=== PATIENT | male | born 1965 | race Caucasian/White ===

== ENCOUNTER 2017-04-09 09:16 | Outpatient (CLI) | payer OTHER ==
--- NOTE | 2017-04-10 02:32 | MRI Report ---
EXAM: MRI BRAIN WITHOUT CONTRAST EXAM DATE: 04/09/2017 10:05 AM. CLINICAL HISTORY: VERTIGO. COMPARISON: None. TECHNIQUE: Multiplanar, multisequence T1-weighted and fluid-sensitive MR sequences of the brain were performed. Sequences optimized for routine head and IAC evaluation. Other: None. IV Contrast: None. FINDINGS: Brain Volume: Normal for age. Parenchyma/Dura: No acute parenchymal hemorrhage, mass, or midline shift. There is several foci of in creased T2 signal involving white matter, within normal limits for adults.No areas of restricted diff usion to suggest acute infarct. No definite abnormal areas of susceptibility artifact. Pituitary: Normal. Ventricles/Cisterns: No definite abnormal extra-axial fluid collection/mass seen. Ventricles and sulc i appear age appropriate. Cisterns are patent. Fluid is seen within Meckel's caves. 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 Sinuses: There is mild paranasal sinus mucosal thickening. No sinus fluid levels. Mastoid air cells a nd middle ear cavities appear clear. Orbits: Normal. Vasculature: Visualized major intracranial flow voids appear maintained. Bones: Normal. Other: T2 appearance of internal auditory canals, vestibule, cochlea normal. IMPRESSION: 1. Mild chronic appearing paranasal sinus disease. 2. Otherwise normal brain MRI. Referring Provider Line: [phone] SITE ID: [id number]
== END 2017-04-09 09:17 | disposition home or self-care (01) ==
LOC: DI 09:16
PROVIDERS: ATTEND Family Medicine
DX: J32.9 Chronic sinusitis, unspecified (principal); R42 Dizziness and giddiness
CPT/HCPCS: 70551

== ENCOUNTER 2018-07-21 08:32 | Outpatient (CLI) | payer OTHER ==
[2018-07-21 13:13] LABS: BASOPHILS # (AUTO) 0.1 10^3/uL (0.0-0.1); BASOPHILS % (AUTO) 1.2 %; EOSINOPHILS # (AUTO) 0.7 10^3/uL (0.0-0.7); EOSINOPHILS % (AUTO) 11.4 %; HGB - HEMOGLOBIN 15.2 g/dL (14.0-18.0); LYMPHOCYTES # (AUTO) 1.5 10^3/uL (1.5-3.5); LYMPHOCYTES % (AUTO) 23.9 %; MEAN CORPUSCULAR HGB CONC 34.1 g/dL (32.0-36.0); MEAN CORPUSCULAR VOLUME 93.7 fL (80.0-94.0); MEAN PLATELET VOLUME 7.7 fL (7.4-11.4); MONOCYTES # (AUTO) 0.5 10^3/uL (0.0-1.0); MONOCYTES % (AUTO) 8.9 %; NEUTROPHILS # (AUTO) 3.4 10^3/uL (1.5-6.6); NEUTROPHILS % (AUTO) 54.6 %; PLT - PLATELET COUNT 291 10^3/uL (130-450); RED BLOOD COUNT 4.77 10^6/uL (4.70-6.10); RED CELL DISTRIBUTION WIDTH 13.5 % (12.0-15.0); WHITE BLOOD COUNT 6.1 x10^3/uL (4.8-10.8)
[2018-07-21 13:41] LABS: ALBUMIN 4.9 g/dL (3.2-5.5); ALBUMIN/GLOBULIN RATIO 1.7 (1.0-2.2); ALKALINE PHOSPHATASE 56 IU/L (42-121); ALT ALANINE AMINOTRANSFERASE 25 IU/L (10-60); AST ASPARTATE AMINOTRANSFERASE 22 IU/L (10-42); BILIRUBIN,TOTAL 1.1 mg/dL (0.2-1.0); BUN - BLOOD UREA NITROGEN 19 mg/dL (6-20); CALCIUM 9.4 mg/dL (8.5-10.3); CARBON DIOXIDE - CO2 25 mmol/L (21-32); CHLORIDE 105 mmol/L (101-111); CHOL/HDL RATIO 4.8 (<5.0); CHOLESTEROL 150 mg/dL; CREATININE 0.9 mg/dL (0.6-1.2); GFR - MDRD 89 (>89); GLUCOSE 100 mg/dL (70-100); HDL CHOLESTEROL 31 mg/dL; LDL CHOLESTEROL,CALCULATED 97 mg/dL; LDL/HDL RATIO 3.1 (<3.6); SODIUM 137 mmol/L (135-145); TOTAL PROTEIN 7.8 g/dL (6.7-8.2); VLDL CHOLESTEROL 22 mg/dL
[2018-07-21 14:00] LABS: HB2 TOTAL 16.7 g/dL; HEMOGLOBIN A1C 0.59 g/dL; HEMOGLOBIN A1C % 5.4 % (4.6-6.2)
== END 2018-07-21 23:59 | disposition home or self-care (01) ==
LOC: LAB.WCP 08:32
PROVIDERS: ATTEND Family Medicine
DX: I10 Essential (primary) hypertension (principal); E78.5 Hyperlipidemia, unspecified; R73.9 Hyperglycemia, unspecified
CPT/HCPCS: 36415; 80053; 80061; 83036; 83721; 85025

== ENCOUNTER 2018-12-10 11:21 | Inpatient (IN) | payer OTHER ==
[2018-12-10] MEDS ORDERED: MORPHINE 2 MG/ML CARPUJECT IVP STA (11:38)
[2018-12-10] MEDS ORDERED: PROMETHAZINE INJ 25 MG in SODIUM CHLORIDE 0.9% 50 ML IV STA (11:38)
[2018-12-10] MEDS ORDERED: SODIUM CHLORIDE 0.9% 1,000 ML IV ONE (11:38)
--- NOTE | 2018-12-10 11:41 | ED Physician Documentation ---
PD HPI ABD PAIN - Stated complaint Stated Complaint: SIDE PX - Chief complaint Chief Complaint: Abd Pain - History obtained from History obtained from: Patient, Family - History of Present Illness Timing - onset: How many days ago (several) Timing - duration: Days (several) Timing - details: Gradual onset Pain level max: 9 Pain level now: 9 Quality: Aching, Pain Location: RUQ Radiation: No: Chest, , Lower back, Left flank, Left shoulder, Right flank, Right shoulder, Upper back Improved by: Laying still Worsened by: Moving, Palpation Associated symptoms: Nausea. No: Fever, Vomiting, Hematemesis, Diarrhea, Constipation, Melena, Hematochezia, Dysuria, Hematuria, Chest pain Similar symptoms before: Has not had sx before Recently seen: Not recently seen - Additional information Additional information: Right upper quadrant abdominal pain for the past few days, became constant 2 days ago. Worsening pain today. Had a sigmoid bowel resection several years ago. Still has his gallbladder. Has not ate or drank anything today Review of Systems Ten Systems: 10 systems reviewed and negative Constitutional: denies: Fever, Chills Respiratory: denies: Cough Skin: denies: Rash Musculoskeletal: denies: Neck pain, Back pain PD PAST MEDICAL HISTORY - Past Medical History Past Medical History: Yes Cardiovascular: Hypertension, High cholesterol Other Past Medical History: spinocerebral ataxia - Past Surgical History Past Surgical History: Yes General: Gastric surgery, Colonoscopy - Present Medications Home Medications: Ambulatory Orders Medication Instructions Recorded Confirmed Aspirin 81 mg PO DAILY 12/10/18 12/10/18 Atorvastatin [Lipitor] 10 mg PO DAILY 12/10/18 12/10/18 Lisinopril 10 mg PO DAILY 12/10/18 12/10/18 - Allergies Allergies/Adverse Reactions: Allergies Allergy/AdvReac Type Severity Reaction Status Date / Time hydromorphone [From Dilaudid] Allergy Nausea Verified 12/10/18 11:29 ondansetron [From Zofran] AdvReac Nausea Verified 12/10/18 11:29 - Social History Does the pt smoke?: No Smoking Status: Never smoker Does the pt drink ETOH?: Yes ETOH Use: Beer Does the pt have substance abuse?: No - Immunizations Immunizations are current?: No PD ED PE NORMAL - Vitals Vital signs reviewed: Yes - General General: Alert and oriented X 3, No acute distress, Well developed/nourished - HEENT HEENT: PERRL, Moist mucous membranes - Neck Neck: Supple, no meningeal sign - Cardiac Cardiac: RRR, Strong equal pulses - Respiratory Respiratory: No respiratory distress, Clear bilaterally - Abdomen Abdomen: Soft, Non distended, Other (Tender palpation right upper quadrant. Positive Teixeira sign) - Back Back: No spinal TTP, Other (R CVAT) - Derm Derm: Warm and dry - Extremities Extremities: No edema - Neuro Neuro: Alert and oriented X 3 - Psych Psych: Normal mood, Normal affect Results - Vitals Vitals: Vital Signs - 24 hr 12/10/18 12/10/18 12/10/18 11:26 11:32 13:29 Temperature 37.0 C Heart Rate 105 H 94 79 Respiratory 16 16 12 Rate Blood Pressure 153/100 H 139/87 H 112/74 O2 Saturation 97 96 94 12/10/18 15:00 Temperature Heart Rate 84 Respiratory 18 Rate Blood Pressure 117/77 O2 Saturation 95 Oxygen O2 Source Room air - Labs Labs: Laboratory Tests 12/10/18 12/10/18 12/10/18 11:33 11:33 13:05 WBC 13.1 H RBC 4.66 L Hgb 14.2 Hct 41.8 L MCV 89.7 MCH 30.5 MCHC 34.0 RDW 14.6 Plt Count 341 MPV 7.2 L Neut # (Auto) 10.3 H Lymph # (Auto) 1.4 L White # (Auto) 1.2 H Eos # (Auto) 0.2 Baso # (Auto) 0.0 Absolute Nucleated RBC 0.00 Nucleated RBC % 0.0 Sodium 138 Potassium 4.0 Chloride 102 Carbon Dioxide 23 Anion Gap 13.0 BUN 15 Creatinine 0.9 Estimated GFR (MDRD) 89 Glucose 98 Calcium 8.8 Total Bilirubin 0.9 AST 15 ALT 16 Alkaline Phosphatase 68 Total Protein 7.5 Albumin 4.0 Globulin 3.5 Albumin/Globulin Ratio 1.1 Lipase 23 Urine Color YELLOW Urine Clarity CLEAR Urine pH 6.0 Ur Specific [place] <=1.005 Urine Protein NEGATIVE Urine Glucose (UA) NEGATIVE Urine Ketones NEGATIVE Urine Occult Blood NEGATIVE Urine Nitrite NEGATIVE Urine Bilirubin MODERATE H Urine Urobilinogen 0.2 (NORMAL) Ur Leukocyte Esterase NEGATIVE Ur Microscopic Review NOT INDICATED Urine Culture Comments NOT INDICATED - Rads (name of study) RUQ US Radiology: Prelim report reviewed, EMP read contemporaneously, See rad report (Suboptimal stress study due to gaseous abdomen. Normal-appearing gallbladder. No other significant abnormality. ) CT abd/pelvis Radiology: Prelim report reviewed, EMP read contemporaneously, See rad report ( Enhancing anterior right upper quadrant collection most likely representing an abscess measuring 3.5 x 2.3 x 3 cm with adjacent inflammatory changes and present along the margins of the mid proximal transverse colon with some associated edema and thickening of the transverse colon. Findings may be the result of diverticulitis with associated abscess although with the linear high density structure within the collection measuring 2.2 cm findings may represent a foreign body having perforated likely originating from the transverse colon with surrounding abscess formation. 2. Colonic diverticulosis. No bowel obstruction. Status post sigmoid resection and anastomosis. 3. Normal appendix. 4. 4.5 mm right lung middle lobe nodule with this portion of the right middle lobe not included on the multiple prior studies. See recommendations below. 5. Normal CT appearance of the gallbladder. ) PD MEDICAL DECISION MAKING - ED course Complexity details: reviewed results, re-evaluated patient, considered differential, d/w patient, d/w family, d/w performance management consultant ED course: 53-year-old male with what appears to be a perforation of his colon from a likely fishbone with abscess formation. Discussed the case with Dr. Jennings, general surgery on-call who feels that interventional radiology should be consulted. I contacted [facility] in [place], spoke with Dr. Jazlyn Eaton, surgery who feels that the patient can likely be placed on antibiotics and either kept here or potentially discharged home. I recontacted Dr. Jennings and he will come evaluate the patient. He came to the emergency department evaluated the patient, discussed with radiology, Dr. Jefferson and they will evaluate the patient tomorrow for possible procedure. Will be maintained on IV antibiotics until that time. Patient placed in observation. Pain well con trolled. This document was made in part using voice recognition software. While efforts are made to proofread this document, sound alike and grammatical errors may occur. Departure - Departure Disposition: ED Place in Observation Clinical Impression: Perforation of colon, Intra-abdominal abscess, Lung nodule < 6cm on CT Condition: Stable
[2018-12-10 11:57] LABS: BASOPHILS % (AUTO) 0.4 %; EOSINOPHILS # (AUTO) 0.2 10^3/uL (0.0-0.7); EOSINOPHILS % (AUTO) 1.4 %; HGB - HEMOGLOBIN 14.2 g/dL (14.0-18.0); LYMPHOCYTES # (AUTO) 1.4 10^3/uL (1.5-3.5); LYMPHOCYTES % (AUTO) 10.9 %; MEAN CORPUSCULAR HEMOGLOBIN 30.5 pg (27.0-31.0); MEAN CORPUSCULAR VOLUME 89.7 fL (80.0-94.0); MEAN PLATELET VOLUME 7.2 fL (7.4-11.4); MONOCYTES # (AUTO) 1.2 10^3/uL (0.0-1.0); MONOCYTES % (AUTO) 9.1 %; NEUTROPHILS # (AUTO) 10.3 10^3/uL (1.5-6.6); NEUTROPHILS % (AUTO) 78.2 %; PLT - PLATELET COUNT 341 10^3/uL (130-450); RED BLOOD COUNT 4.66 10^6/uL (4.70-6.10); RED CELL DISTRIBUTION WIDTH 14.6 % (12.0-15.0); WHITE BLOOD COUNT 13.1 x10^3/uL (4.8-10.8)
[2018-12-10 12:26] LABS: ALBUMIN/GLOBULIN RATIO 1.1 (1.0-2.2); BILIRUBIN,TOTAL 0.9 mg/dL (0.2-1.0); CALCIUM 8.8 mg/dL (8.5-10.3); CREATININE 0.9 mg/dL (0.6-1.2); TOTAL PROTEIN 7.5 g/dL (6.7-8.2)
[2018-12-10] MEDS ORDERED: MORPHINE 10 MG/ML VIAL IVP STA ×2 (13:19→17:32)
--- NOTE | 2018-12-10 13:38 | Ultrasound Report ---
Reason: RUQ pain Procedure Date: 12/10/2018 Accession Number: [id number] / [id number] Procedure: US - Abdomen Limited CPT Code: FULL RESULT: EXAM: ABDOMEN ULTRASOUND LIMITED, RUQ EXAM DATE: 12/10/2018 01:17 PM. CLINICAL HISTORY: RUQ pain. COMPARISON: None. TECHNIQUE: Real-time scanning was performed with static images obtained. FINDINGS: Liver: Normal in size and echotexture. 16.6 cm. Main portal vein flow: Hepatopetal. Gallbladder: Normal. No stones, wall thickening, or sonographic Teixeira's sign. (Diffusely painful abdomen) Biliary System: CBD measures 3 mm. No intrahepatic or extrahepatic ductal dilatation. Other: Pancreas not visualized due to overlying bowel gas. IMPRESSION: Suboptimal stress study due to gaseous abdomen. Normal-appearing gallbladder. No other significant abnormality. RADIA
[2018-12-10] MEDS ORDERED: IOVERSOL 320 100 ML VIAL IVP ONE ×3 (13:54→19:00)
[2018-12-10 13:57] LABS: GLUCOSE, URINE (UA) NEGATIVE (NEGATIVE); KETONES,URINE (UA) NEGATIVE (NEGATIVE); LEUKOCYTE ESTERASE, URINE NEGATIVE (NEGATIVE); NITRITE,URINE NEGATIVE (NEGATIVE); OCCULT BLOOD,URINE NEGATIVE (NEGATIVE); PROTEIN,URINE NEGATIVE (NEGATIVE); UROBILINOGEN,URINE 0.2 (NORMAL) E.U./dL (NORMAL)
[2018-12-10 13:59] LABS: CLARITY,URINE CLEAR (CLEAR)
[2018-12-10 14:03] LABS: BILIRUBIN,URINE MODERATE (NEGATIVE); ICTOTEST,URINE POSITIVE
--- NOTE | 2018-12-10 15:05 | CT Report ---
Reason: RUQ abd pain Procedure Date: 12/10/2018 Accession Number: [id number] / [id number] Procedure: CT - Abdomen/Pelvis W CPT Code: FULL RESULT: EXAM: CT ABDOMEN AND PELVIS WITH CONTRAST. EXAM DATE: 12/10/2018 02:14 PM. CLINICAL HISTORY: Right upper quadrant abdominal pain. COMPARISONS: ABD/PEL 08/11/2009 8:25 AM, ABD/PEL 06/26/2009 9:49 AM, ABD/PEL 05/31/2009 11:59 AM. TECHNIQUE: Routine helical CT imaging was performed through the abdomen and pelvis. IV contrast: 90 cc of Optiray 320. Enteric contrast: No. Reconstructions: Coronal and sagittal. In accordance with CT protocol optimization, one or more of the following dose reduction techniques were utilized for this exam: automated exposure control, adjustment of mA and/or KV based on patient size, or use of iterative reconstructive technique. FINDINGS: Lung Bases: Bibasilar scar/atelectasis. Nodule in the right middle lobe is noted measuring 4.5 mm. Included portions of the heart are unremarkable. Small hiatal hernia. Liver: Fatty liver. 4 mm low attenuation lesion in the left lobe of the liver not clearly evident on the prior studies. Patent portal vein. Gallbladder/Bile Ducts: Unremarkable. Spleen: Normal. Pancreas: Normal. Adrenal Glands: Normal. Kidneys: Left renal pelvic calyceal dilatation in the lower pole new in the interval. No obstructing calculi. No renal masses. Peritoneal Cavity/Bowel: Stomach is nondistended. No small bowel obstruction or small bowel wall thickening. Diverticuli are seen in the colon. Post surgical changes are seen in the sigmoid colon with partial resection and anastomosis. There are inflammatory changes and thickening involving the anterior mid proximal transverse colon along the margins of a diverticula with adjacent edema. There is adjacent marked edema as well as a low-attenuation 3 x 2.3 x 3.5 cm collection along the anterior cephalad aspect of the mid proximal transverse colon through which there traverses a linear high density structure seen best on coronal image 10 and axial images 29-32 and sagittal images 46-50. This measures approximately 2.2 cm in length. The fluid collection is present along the posterior aspect of the anterior superior right abdominal wall where there is adjacent thickening of the fascia and soft tissues anteriorly. The appendix is well visualized and normal. Pelvic Organs: Urinary bladder is unremarkable. Postsurgical changes involving the sigmoid colon. Small volume pelvic free fluid. Prostate gland is mildly enlarged. Fatty left inguinal hernia and small fatty right inguinal hernia. Vasculature: No aneurysms or other significant abnormality. Bones: Degenerative changes of lower thoracic and lumbar spine. No acute osseous abnormalities. Lumbar facet arthropathy. Other: None. IMPRESSION: 1. Enhancing anterior right upper quadrant collection most likely representing an abscess measuring 3.5 x 2.3 x 3 cm with adjacent inflammatory changes and present along the margins of the mid proximal transverse colon with some associated edema and thickening of the transverse colon. Findings may be the result of diverticulitis with associated abscess although with the linear high density structure within the collection measuring 2.2 cm findings may represent a foreign body having perforated likely originating from the transverse colon with surrounding abscess formation. 2. Colonic diverticulosis. No bowel obstruction. Status post sigmoid resection and anastomosis. 3. Normal appendix. 4. 4.5 mm right middle lobe nodule with this portion of the right middle lobe not included on the multiple prior studies. See recommendations below. 5. Normal CT appearance of the gallbladder. Recommend follow-up of the described nodule(s) according to the following guidelines: Fleischner Society Recommendations 2017 MacMahon et al. Radiology 2017 Solid Nodules-Low Risk Patients: <6 mm (single or multiple) - No routine follow-up* 6-8 mm (single) -CT at 6-12 months, then consider CT at 18-24 months 6-8mm (multiple) -CT at 3-6 months, then consider at CT 18-24 months >8 mm (single) -Consider CT, PET/CT, or tissue sampling at 3 months >8 mm (multiple) -CT at 3-6 months, then consider CT at 18-24 months Solid Nodules-High Risk Patients: <6 mm (single or multiple) -Optional CT at 12 months* 6-8 mm (single) -CT at 6-12 months, then CT at 18-24 months 6-8mm (multiple) -CT at 3-6 months, then CT at 18-24 months >8 mm (single) -Consider CT, PET/CT, or tissue sampling at 3 months >8 mm (multiple) -CT at 3-6 months, then at 18-24 months *Nodules < 6mm do not require routine follow-up, but suspicious nodule morphology, upper lobe location, or both may warrant 12 month follow-up Subsolid nodules: <6 mm (single, GG or part solid) -No routine follow-up >=6 mm (single GG) -CT at 6-12 months to confirm, then CT q2 years until 5 years >=6 mm (single part solid) -CT at 3-6 months to confirm, if unchanged and solid <6mm, annual CT for 5 years <6 mm (multiple GG or part solid) -CT at 3-6 months. If stable, consider CT at 2 and 4 years >=6 mm (multiple GG or part solid) -CT at 3-6 months. Subsequent management based on most suspicious nodule(s). Consider follow-up at 2 and 4 years for certain suspicious nodules <6mm. If solid component develops or growth, consider resection. CRISTOFER The call report notification system was initiated by Dr. Tex Oconnor at 02:54 PM on 12/10/2018. The above call report findings were discussed with Vance Pro by Dr. Tex Oconnor at 03:00 PM on 12/10/2018.
[2018-12-10] MEDS ORDERED: PIPERACILLIN/TAZOBACTAM 4.5 GM in SODIUM CHLORIDE 0.9% MINIBAG 100 ML IV STA (15:12)
[2018-12-10] MEDS ORDERED: PROCHLORPERAZINE 10 MG/2 ML VIAL IVP PRN (17:00)
--- NOTE | 2018-12-10 17:13 | CONSULTATION NOTE ---
Referring Provider Name of Referring Provider:: Dr. Tom Pro Consult Date: 12/10/18 Chief Complaint - Chief Complaint Chief Complaint: Abdominal pain (RUQ) History of Present Illness - Admitted From Admitted From:: Observation status awaiting resources - History Obtained From Records Reviewed: Yes History obtained from: Patient and Dr. Pro Exam Limitations: None - History of Present Illness HPI Comment/Other: Patient is a 53 year old History - Past Medical History Cardiovascular: reports: Hypertension, High cholesterol MRSA Hx?: No Other Past Medical History: spinocerebral ataxia - Past Surgical History General: reports: Gastric surgery, Colonoscopy Meds/Allgy - Home Medications Home Medications: Ambulatory Orders Medication Instructions Recorded Confirmed Atorvastatin [Lipitor] 10 mg PO DAILY 12/10/18 12/10/18 RX: Aspirin 81 mg PO DAILY 12/10/18 12/10/18 RX: Lisinopril 10 mg PO DAILY 12/10/18 12/10/18 - Allergies Allergies/Adverse Reactions: Allergies Allergy/AdvReac Type Severity Reaction Status Date / Time hydromorphone [From Dilaudid] Allergy Nausea Verified 12/10/18 11:29 ondansetron [From Zofran] AdvReac Nausea Verified 12/10/18 11:29 Review of Systems - Constitutional Constitutional: denies: Fatigue, Fever, Chills - Eyes Eyes: denies: Pain - Ears, Nose & Throat Ears, Nose & Throat: denies: Ear pain - Cardiovascular Cariovascular: denies: Irregular heart rate, Palpitations, Chest pain - Respiratory Respiratory: denies: Cough - Gastrointestinal Gastrointestinal: reports: Abdominal pain, Nausea. denies: Constipation, Diarrhea, Black stools, Bloody stools - Musculoskeletal Musculoskeletal: denies: Muscle pain, Back pain, Muscle aches - Neurological Neurological: denies: General weakness, Focal weakness - Psychiatric Psychiatric: denies: Depression, Anxiety Exam - Vital Signs Reviewed Vital Signs: Yes Vital Signs: Vital Signs x48h Temp Pulse Resp BP Pulse Ox 12/10/18 13:29 79 12 112/74 94 12/10/18 11:32 94 16 139/87 H 96 12/10/18 11:26 37.0 C 105 H 16 153/100 H 97 - Physical Exam General Appearance: positive: No acute distress Eyes Bilateral: positive: No lid inflammation, Conjunctivae nml, No scleral icterus ENT: positive: Dry mucous membranes Neck: positive: Trachea midline Respiratory: positive: Chest non-tender, No respiratory distress, Breath sounds nml Cardiovascular: positive: Regular rate & rhythm Abdomen: positive: Nml bowel sounds, No distention, Tenderness (Marked with a "X" on the patient's abdominal wall.) Skin: positive: Color nml (Slightly flushed.) Extremities: positive: Non-tender, Nml appearance Neurologic/Psychiatric: positive: Oriented x3, Motor nml, Sensation nml, Mood/affect nml Conclusion/Plan - Diagnosis Diagnosis: Abdominal abscess with foreign body right upper quadrant abdominal wall. - Plan Plan: Awaiting resources (ultrasound and radiologist) to guide drainage procedure. Incision and drainage of intra-abdominal abscess and removal foreign body with ultrasound guidance, possible colon resection with colostomy. The indication, procedure, and possible complications including but not limited to infection (already present), bleeding and even were already discussed with the patient and his and questions answered. The surgical case has been added to the schedule for tomorrow when it is convenient for all the requisite personnel. I have started Zosyn to cover enterics and have ordered labs in the AM. Clear liquid diet and NPO after midnight. I have asked them to let me know if there is any way we can make his stay at [facility] more comfortable to please let us know. Zen disclaimer: This document was created in part using voice recognition technology. Because of the inherent limitations of the system ([employer] user manual states that the licensee understands that speech recognition is a statistical process and that recognition errors are inherent in the process), occasional same sounding word substitutions and grammatical errors do occur and persist despite proofreading. Please read this document for context. - Lab Results Lab results reviewed: Yes Fish Bones: 12/10/18 11:33 12/10/18 11:33 - Diagnostic Imaging Results Diagnostic Imaging Results: positive: Final report reviewed, Read independently
[2018-12-10] MEDS: SODIUM CHLORIDE FLUSH 0.9% 10 ML SYRINGE IVP SCH (18:18)
[2018-12-10] MEDS: NS W/20 MEQ KCL 1,000 ML IV SCH (18:18)
[2018-12-10] MEDS: PIPERACILLIN/TAZOBACTAM 3.375 GM in SODIUM CHLORIDE 0.9% MINIBAG 100 ML IV SCH (18:18)
[2018-12-10] MEDS: MORPHINE 2 MG/ML SYRINGE IVP PRN ×2 (20:11→21:54)
[2018-12-11] MEDS: MORPHINE 2 MG/ML SYRINGE IVP PRN ×6 (00:06→22:09)
[2018-12-11] MEDS: SODIUM CHLORIDE FLUSH 0.9% 10 ML SYRINGE IVP SCH ×2 (00:07→18:17)
[2018-12-11] MEDS: PIPERACILLIN/TAZOBACTAM 3.375 GM in SODIUM CHLORIDE 0.9% MINIBAG 100 ML IV SCH ×5 (00:08→18:15)
[2018-12-11] MEDS: SODIUM CHLORIDE FLUSH 0.9% 10 ML SYRINGE IVP PRN ×5 (00:27→18:27)
[2018-12-11] MEDS: NS W/20 MEQ KCL 1,000 ML IV SCH (04:12)
[2018-12-11 05:53] LABS: BASOPHILS % (AUTO) 0.3 %; EOSINOPHILS # (AUTO) 0.2 10^3/uL (0.0-0.7); EOSINOPHILS % (AUTO) 1.7 %; HGB - HEMOGLOBIN 12.5 g/dL (14.0-18.0); LYMPHOCYTES # (AUTO) 1.5 10^3/uL (1.5-3.5); LYMPHOCYTES % (AUTO) 12.4 %; MEAN CORPUSCULAR HEMOGLOBIN 30.6 pg (27.0-31.0); MEAN CORPUSCULAR VOLUME 92.6 fL (80.0-94.0); MEAN PLATELET VOLUME 6.6 fL (7.4-11.4); MONOCYTES # (AUTO) 1.3 10^3/uL (0.0-1.0); NEUTROPHILS # (AUTO) 9.1 10^3/uL (1.5-6.6); NEUTROPHILS % (AUTO) 74.6 %; PLT - PLATELET COUNT 305 10^3/uL (130-450); RED BLOOD COUNT 4.09 10^6/uL (4.70-6.10); RED CELL DISTRIBUTION WIDTH 14.3 % (12.0-15.0); WHITE BLOOD COUNT 12.2 x10^3/uL (4.8-10.8)
[2018-12-11 06:01] LABS: ALBUMIN 3.4 g/dL (3.2-5.5); CALCIUM 8.3 mg/dL (8.5-10.3); CREATININE 0.9 mg/dL (0.6-1.2); TOTAL PROTEIN 6.9 g/dL (6.7-8.2)
[2018-12-11] MEDS: PANTOPRAZOLE 40 MG TABLET PO SCH (06:13)
--- NOTE | 2018-12-11 08:09 | ANESTHESIA ---
Pre-Anesthesia VS, & Labs - Diagnosis Diagnosis Abdominal abscess with foreign body right upper quadrant abdominal wall. - Procedure I and D abscess, FB removal of colon Vital Signs: Temp Pulse Resp BP Pulse Ox 37.3 C 86 16 107/60 94 12/11/18 05:45 12/11/18 05:45 12/11/18 05:45 12/11/18 05:45 12/11/18 05:45 Height 5 ft 6 in Weight (kg) 77.5 kg Body Mass Index 27.6 - NPO Other (Water at 0700) - Lab Results Current Lab Results: Laboratory Tests 12/11/18 05:40: Sodium 138, Potassium 4.0, Chloride 104, Carbon Dioxide 24, Anion Gap 10.0, BUN 10, Creatinine 0.9, Estimated GFR (MDRD) 89, Glucose 109 H, Calcium 8.3 L, Total Bilirubin 1.0, AST 12, ALT 12, Alkaline Phosphatase 66, Total Protein 6.9, Albumin 3.4, Globulin 3.5, Albumin/Globulin Ratio 1.0 12/11/18 05:40: WBC 12.2 H, RBC 4.09 L, Hgb 12.5 L, Hct 37.9 L, MCV 92.6, MCH 30.6, MCHC 33.0, RDW 14.3, Plt Count 305, MPV 6.6 L, Neut # (Auto) 9.1 H, Lymph # (Auto) 1.5, [place] # (Auto) 1.3 H, Eos # (Auto) 0.2, Baso # (Auto) 0.0, Absolute Nucleated RBC 0.00, Nucleated RBC % 0.0 12/10/18 11:33: Sodium 138, Potassium 4.0, Chloride 102, Carbon Dioxide 23, Anion Gap 13.0, BUN 15, Creatinine 0.9, Estimated GFR (MDRD) 89, Glucose 98, Calcium 8.8, Total Bilirubin 0.9, AST 15, ALT 16, Alkaline Phosphatase 68, Total Protein 7.5, Albumin 4.0, Globulin 3.5, Albumin/Globulin Ratio 1.1, Lipase 23 12/10/18 11:33: WBC 13.1 H, RBC 4.66 L, Hgb 14.2, Hct 41.8 L, MCV 89.7, MCH 30.5, MCHC 34.0, RDW 14.6, Plt Count 341, MPV 7.2 L, Neut # (Auto) 10.3 H, Lymph # (Auto) 1.4 L, [place] # (Auto) 1.2 H, Eos # (Auto) 0.2, Baso # (Auto) 0.0, Absolute Nucleated RBC 0.00, Nucleated RBC % 0.0 Fish Bones: 12/11/18 05:40 12/11/18 05:40 Home Medications and Allergies Home Medications: Ambulatory Orders Aspirin 81 mg PO DAILY 12/10/18 Atorvastatin [Lipitor] 10 mg PO DAILY 12/10/18 Lisinopril 10 mg PO DAILY 12/10/18 Active Medications Potassium Chloride/Sodium Chloride (Normal Saline 0.9% W/20 Meq Kcl) 1,000 mls @ 100 mls/hr IV .Q10H [facility] Last Infusion: 12/11/18 06:50 Dose: 100 mls/hr Piperacillin Sod/Tazobactam (Sod 3.375 gm/ Sodium Chloride) 100 mls @ 200 mls/hr IV Q6H [facility] Stop: 12/16/18 12:00 Last Infusion: 12/11/18 06:48 Dose: Infused Morphine Sulfate (Morphine (Carpuject)) 2 mg IVP Q2H PRN PRN Reason: Abdominal Pain Pantoprazole Sodium (Protonix) 40 mg PO QDAC [facility] Last Admin: 12/11/18 06:13 Dose: 40 mg Prochlorperazine Edisylate (Compazine Inj) 10 mg IVP Q6HR PRN PRN Reason: Nausea / Vomiting Last Admin: 12/11/18 00:27 Dose: 10 mg Sodium Chloride (Normal Saline Flush 0.9%) 10 ml IVP PRN PRN PRN Reason: NEEDED PER PROVIDER ORDERS Last Admin: 12/11/18 06:13 Dose: 10 ml Sodium Chloride (Normal Saline Flush 0.9%) 10 ml IVP 0100,0900,1700 [facility] Last Admin: 12/11/18 00:07 Dose: 10 ml Aspirin 81 mg PO DAILY 12/10/18 Atorvastatin [Lipitor] 10 mg PO DAILY 12/10/18 Lisinopril 10 mg PO DAILY 12/10/18 Allergies/Adverse Reactions: Allergies Allergy/AdvReac Type Severity Reaction Status Date / Time hydromorphone [From Dilaudid] Allergy Nausea Verified 12/10/18 11:29 ondansetron [From Zofran] AdvReac Nausea Verified 12/10/18 11:29 Anes History & Medical History - Anesthetic History Anesthesia Complications: reports: No previous complications Family history of Anesthesia Complications: Denies Family history of Malignant Hyperthermia: Denies - Medical History Cardiovascular: reports: Hypertension, High cholesterol Pulmonary: reports: None Gastrointestinal: reports: None Urinary: reports: None Neuro: reports: None Musculoskeletal: reports: None Endocrine/Autoimmune: reports: None Blood Disorders: reports: None Skin: reports: None Smoking Status: Never smoker Other Past Medical History: spinocerebral ataxia - Surgical History General: Gastric surgery, Colonoscopy Orthopedic: Other Exam General: Alert Dental: Other (Veneer top front) Mouth Opening: Greater than 4 Fingerbreadths Neck Mobility: Normal Mallampati classification: I Thyromental Distance: greater than 6 cm Respiratory: Lungs clear Cardiovascular: Regular rate Plan Anesthesia Type: General Consent for Procedure(s) Verified and Reviewed: Yes Code Status: Attempt Resuscitation ASA classification: 2-Mild systemic disease Is this case an emergency?: No
[2018-12-11] MEDS: MORPHINE 2 MG/ML CARPUJECT IVP PRN ×3 (08:11→18:04)
[2018-12-11] MEDS ORDERED: BUPIVACAINE 0.5% PF 10 ML VIAL ONE (09:10)
--- NOTE | 2018-12-11 09:15 | Ultrasound Report ---
Reason: Abscess with foreign body Procedure Date: 12/11/2018 Accession Number: [id number] / [id number] Procedure: US - Abdomen Limited CPT Code: FULL RESULT: EXAM: ABDOMEN ULTRASOUND LIMITED, RUQ EXAM DATE: 12/11/2018 08:44 AM. CLINICAL HISTORY: Abscess with foreign body. COMPARISON: None. TECHNIQUE: Real-time scanning was performed with static images obtained. FINDINGS: Characterization of location and characteristics of a known contained perforation of the colon in the right upper quadrant with abscess and suspected foreign body is performed to aid in surgical approach and planning. The abscess is located 3 cm deep to the skin immediately adjacent to the internal abdominal wall musculature fascia with a thin linear echogenic foreign body correlating to the CT finding. Overall dimensions of the collection on ultrasound are approximately 1.5 x 2.3 cm. IMPRESSION: Right upper quadrant abdominal collection with foreign body as described. Please note that findings and skin were marked in detail for the surgeon and reviewed with the surgeon. CRISTOFER
[2018-12-11] MEDS ORDERED: MIDAZOLAM 2 MG/2 ML VIAL IVP ONE (09:55)
[2018-12-11] MEDS ORDERED: fentaNYL 100 MCG/2 ML VIAL IVP ONE (09:55)
[2018-12-11] MEDS ORDERED: LIDOCAINE-MPF 2% 5 ML VIAL IM ONE (09:55)
[2018-12-11] MEDS ORDERED: ACETAMINOPHEN 1,000 MG/100 ML 100 ML IV ONE (09:55)
[2018-12-11] MEDS ORDERED: ROCURONIUM 50 MG/5 ML VIAL IVP ONE (09:55)
[2018-12-11] MEDS ORDERED: PROPOFOL 200 MG/20 ML VIAL IVP ONE (09:55)
[2018-12-11] MEDS ORDERED: DEXAMETHASONE 4 MG/ML VIAL IVP ONE (09:55)
[2018-12-11] MEDS ORDERED: BUPIVACAINE 0.5% PF 10 ML VIAL SUBQ ONE (09:59)
[2018-12-11] MEDS ORDERED: LACTATED RINGERS 1,000 ML IV ONE ×2 (10:05→11:13)
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
[2018-12-11] MEDS: ACETAMINOPHEN 1,000 MG/100 ML 100 ML IV SCH ×3 (13:32→22:04)
[2018-12-11] MEDS: LACTATED RINGERS 1,000 ML IV SCH ×2 (13:34→19:17)
[2018-12-12] MEDS: PIPERACILLIN/TAZOBACTAM 3.375 GM in SODIUM CHLORIDE 0.9% MINIBAG 100 ML IV SCH ×5 (00:04→23:59)
[2018-12-12] MEDS: SODIUM CHLORIDE FLUSH 0.9% 10 ML SYRINGE IVP SCH ×3 (00:05→18:17)
[2018-12-12] MEDS: MORPHINE 2 MG/ML SYRINGE IVP PRN ×7 (00:05→22:17)
[2018-12-12 05:06] LABS: BASOPHILS % (AUTO) 0.3 %; EOSINOPHILS % (AUTO) 0.1 %; HGB - HEMOGLOBIN 11.9 g/dL (14.0-18.0); LYMPHOCYTES % (AUTO) 8.1 %; MEAN CORPUSCULAR HEMOGLOBIN 31.2 pg (27.0-31.0); MEAN CORPUSCULAR HGB CONC 34.1 g/dL (32.0-36.0); MEAN CORPUSCULAR VOLUME 91.6 fL (80.0-94.0); MEAN PLATELET VOLUME 6.8 fL (7.4-11.4); MONOCYTES # (AUTO) 1.2 10^3/uL (0.0-1.0); NEUTROPHILS # (AUTO) 9.9 10^3/uL (1.5-6.6); NEUTROPHILS % (AUTO) 81.5 %; PLT - PLATELET COUNT 286 10^3/uL (130-450); RED BLOOD COUNT 3.81 10^6/uL (4.70-6.10); RED CELL DISTRIBUTION WIDTH 14.3 % (12.0-15.0); WHITE BLOOD COUNT 12.2 x10^3/uL (4.8-10.8)
[2018-12-12 05:18] LABS: ALBUMIN/GLOBULIN RATIO 0.9 (1.0-2.2); BILIRUBIN,TOTAL 0.7 mg/dL (0.2-1.0); CALCIUM 8.1 mg/dL (8.5-10.3); CREATININE 0.9 mg/dL (0.6-1.2); TOTAL PROTEIN 6.5 g/dL (6.7-8.2)
[2018-12-12] MEDS: PANTOPRAZOLE 40 MG TABLET PO SCH (05:57)
[2018-12-12] MEDS ORDERED: ACETAMINOPHEN 1,000 MG/100 ML 100 ML IV SCH (06:00)
[2018-12-12] MEDS: ENOXAPARIN 40 MG/0.4 ML SYRINGE SUBQ SCH (07:57)
--- NOTE | 2018-12-12 10:14 | PROVIDER PROGRESS NOTE ---
Subjective - General Admit Date: 12/11/18 Procedure Date: 12/11/18 Post Op Days: 3 Procedure Performed: Exploratory laparotomy with resection abscess cavity and removal foreign reagan - Review of Systems Wound/Incisions: positive: Dressing dry and intact General: positive: No symptoms (Tolerated all of breakfast - wants regular diet.) HEENT: positive: No symptoms Pulmonary: positive: No symptoms Cardiovascular: positive: No symptoms Gastrointestinal: positive: Abdominal pain, Flatus. negative: Nausea, Vomiting, Difficulty swallowing, Melena, Hematochezia Genitourinary: positive: No symptoms Skin: positive: No symptoms Psychiatric: positive: No symptoms - Other Other Information/Narrative: Unsteady on his feet but this was present preoperatively. Objective - Patient Data Reviewed Vital Signs: Yes Vital Signs: Vital Signs x48h Temp Pulse Resp BP Pulse Ox 12/12/18 08:05 37.0 C 81 18 118/74 96 12/12/18 05:00 37.1 C 88 16 119/75 95 Weight: Weight 12/10/18 12/11/18 12/12/18 23:59 23:59 23:59 Weight (kg) 77.5 kg Intake & Output: Intake and Output Totals x24h 12/10/18 12/11/18 12/12/18 23:59 23:59 23:59 Intake Total 1251 2616.670 540 Output Total 150 605 98 Balance 1101 2011.670 442 - Lab Results Lab Results: 12/14/18 04:35 12/12/18 04:40 Other Lab Results: Lab Results x24hrs 12/12/18 12/12/18 Range/Units 04:40 04:40 WBC 12.2 H (4.8-10.8) x10^3/uL RBC 3.81 L (4.70-6.10) 10^6/uL Hgb 11.9 L (14.0-18.0) g/dL Hct 34.9 L (42.0-52.0) % MCV 91.6 (80.0-94.0) fL MCH 31.2 H (27.0-31.0) pg MCHC 34.1 (32.0-36.0) g/dL RDW 14.3 (12.0-15.0) % Plt Count 286 (130-450) 10^3/uL MPV 6.8 L (7.4-11.4) fL Neut # (Auto) 9.9 H (1.5-6.6) 10^3/uL Lymph # (Auto) 1.0 L (1.5-3.5) 10^3/uL [place] # (Auto) 1.2 H (0.0-1.0) 10^3/uL Eos # (Auto) 0.0 (0.0-0.7) 10^3/uL Baso # (Auto) 0.0 (0.0-0.1) 10^3/uL Absolute Nucleated RBC 0.00 x10^3/uL Nucleated RBC % 0.0 /100WBC Sodium 137 (135-145) mmol/L Potassium 3.8 (3.5-5.0) mmol/L Chloride 101 (101-111) mmol/L Carbon Dioxide 24 (21-32) mmol/L Anion Gap 12.0 (6-13) BUN 9 (6-20) mg/dL Creatinine 0.9 (0.6-1.2) mg/dL Estimated GFR (MDRD) 89 (>89) Glucose 124 H (70-100) mg/dL Calcium 8.1 L (8.5-10.3) mg/dL Total Bilirubin 0.7 (0.2-1.0) mg/dL AST 17 (10-42) IU/L ALT 16 (10-60) IU/L Alkaline Phosphatase 62 (42-121) IU/L Total Protein 6.5 L (6.7-8.2) g/dL Albumin 3.0 L (3.2-5.5) g/dL Globulin 3.5 (2.1-4.2) g/dL Albumin/Globulin Ratio 0.9 L (1.0-2.2) - Current Medications Current Medications: Current Medications Generic Name Dose Route Start Last Admin Trade Name Freq PRN Reason Stop Dose Admin Enoxaparin Sodium 40 mg 12/12/18 09:00 12/12/18 07:57 Lovenox SUBQ 40 mg DAILY BECKY Administration Lactated Ringer's 1,000 mls @ 50 mls/hr 12/11/18 12:00 12/11/18 19:17 Lr IV 50 mls/hr .Q20H BECKY Administration Piperacillin Sod/Tazobactam 100 mls @ 200 mls/hr 12/11/18 18:00 12/12/18 06:45 Sod 3.375 gm/ Sodium Chloride IV 12/17/18 17:59 Infused Q6HR BECKY Infusion Pantoprazole Sodium 40 mg 12/11/18 07:00 12/12/18 05:57 Protonix PO 40 mg QDAC BECKY Administration Prochlorperazine Edisylate 10 mg 12/10/18 17:00 12/11/18 00:27 Compazine Inj IVP 10 mg Q6HR PRN Administration Nausea / Vomiting Sodium Chloride 10 ml 12/11/18 17:00 12/12/18 00:05 Normal Saline Flush 0.9% IVP 10 ml 0100,0900,1700 BECKY Administration Sodium Chloride 10 ml 12/11/18 11:39 12/11/18 18:27 Normal Saline Flush 0.9% IVP 10 ml PRN PRN Administration NEEDED PER PROVIDER ORDERS - Physical Exam Wound/Incisions: positive: Dressing dry and intact General Appearance: positive: No acute distress Eyes Bilateral: positive: No lid inflammation, Conjunctivae nml, No scleral icterus ENT: positive: No signs of dehydration Neck: positive: Trachea midline Respiratory: positive: Chest non-tender Cardiovascular: positive: Regular rate & rhythm Abdomen: positive: Tenderness (Incisional.) Skin: positive: Color nml, Warm, Dry. negative: Cyanosis, Pallor Neurologic/Psychiatric: positive: Oriented x3, Motor nml, Sensation nml, Mood/af fect nml ABX Reporting Has patient been on IV antibiotics over the past 48 hours?: Yes Impression/Plan - Problem List Problem List: D1 s/p exploratory laparotomy after failed transcutaneous drainage of intrabdominal abscess with resection of abscess cavity, removal foreign body (wire) and omental patch of colon 1) FEN Continue IVF - start ERAS protocol. 2) ID Continue Zosyn 3.375 mg [id number] and this should cover all enterics. 3) Activity Ambulate as much as possible- incentive spirometry.
[2018-12-12] MEDS: HYDROcod/ACETAM 5/325 MG TABLET PO PRN ×3 (11:40→21:27)
[2018-12-12] MEDS: LACTATED RINGERS 1,000 ML IV SCH (14:18)
[2018-12-12] MEDS: SODIUM CHLORIDE FLUSH 0.9% 10 ML SYRINGE IVP PRN ×2 (20:10→22:17)
[2018-12-12] MEDS ORDERED: DOCUSATE SODIUM 250 MG CAPSULE PO SCH (21:00)
[2018-12-12] MEDS ORDERED: DOCUSATE SODIUM 250 MG CAPSULE PO ONE (21:00)
[2018-12-12] MEDS: SIMETHICONE CHEW 80 MG TABLET PO PRN (21:26)
[2018-12-13] MEDS: HYDROcod/ACETAM 5/325 MG TABLET PO PRN ×6 (02:11→22:36)
[2018-12-13] MEDS: PIPERACILLIN/TAZOBACTAM 3.375 GM in SODIUM CHLORIDE 0.9% MINIBAG 100 ML IV SCH ×3 (06:48→17:45)
[2018-12-13] MEDS: PANTOPRAZOLE 40 MG TABLET PO SCH (06:49)
[2018-12-13] MEDS: SODIUM CHLORIDE FLUSH 0.9% 10 ML SYRINGE IVP SCH ×3 (06:50→17:08)
[2018-12-13 09:17] LABS: BASOPHILS % (AUTO) 0.3 %; EOSINOPHILS # (AUTO) 0.5 10^3/uL (0.0-0.7); EOSINOPHILS % (AUTO) 3.4 %; HGB - HEMOGLOBIN 12.6 g/dL (14.0-18.0); LYMPHOCYTES # (AUTO) 1.2 10^3/uL (1.5-3.5); LYMPHOCYTES % (AUTO) 8.8 %; MEAN CORPUSCULAR HEMOGLOBIN 29.9 pg (27.0-31.0); MEAN CORPUSCULAR HGB CONC 32.9 g/dL (32.0-36.0); MEAN PLATELET VOLUME 6.3 fL (7.4-11.4); MONOCYTES # (AUTO) 1.4 10^3/uL (0.0-1.0); NEUTROPHILS % (AUTO) 77.5 %; PLT - PLATELET COUNT 405 10^3/uL (130-450); RED BLOOD COUNT 4.22 10^6/uL (4.70-6.10); RED CELL DISTRIBUTION WIDTH 14.1 % (12.0-15.0); WHITE BLOOD COUNT 14.1 x10^3/uL (4.8-10.8)
[2018-12-13] MEDS: POLYETHYLENE GLYCOL 3350 17 GM PACKET PO SCH (09:42)
[2018-12-13] MEDS: SIMETHICONE CHEW 80 MG TABLET PO PRN (09:43)
[2018-12-13] MEDS: ENOXAPARIN 40 MG/0.4 ML SYRINGE SUBQ SCH (09:43)
[2018-12-13] MEDS: DOCUSATE SODIUM 250 MG CAPSULE PO SCH (09:43)
[2018-12-13] MEDS: SODIUM CHLORIDE FLUSH 0.9% 10 ML SYRINGE IVP PRN ×2 (09:43)
[2018-12-13] MEDS: LACTATED RINGERS 1,000 ML IV SCH (12:50)
[2018-12-14] MEDS: SODIUM CHLORIDE FLUSH 0.9% 10 ML SYRINGE IVP SCH ×2 (00:01→10:10)
[2018-12-14] MEDS: HYDROcod/ACETAM 5/325 MG TABLET PO PRN ×4 (02:34→15:21)
[2018-12-14 05:13] LABS: BASOPHILS % (AUTO) 0.3 %; EOSINOPHILS # (AUTO) 0.7 10^3/uL (0.0-0.7); EOSINOPHILS % (AUTO) 6.8 %; HGB - HEMOGLOBIN 12.1 g/dL (14.0-18.0); LYMPHOCYTES # (AUTO) 1.2 10^3/uL (1.5-3.5); LYMPHOCYTES % (AUTO) 11.6 %; MEAN CORPUSCULAR HEMOGLOBIN 30.8 pg (27.0-31.0); MEAN CORPUSCULAR HGB CONC 33.6 g/dL (32.0-36.0); MEAN CORPUSCULAR VOLUME 91.5 fL (80.0-94.0); MEAN PLATELET VOLUME 6.4 fL (7.4-11.4); MONOCYTES # (AUTO) 0.9 10^3/uL (0.0-1.0); NEUTROPHILS # (AUTO) 7.6 10^3/uL (1.5-6.6); NEUTROPHILS % (AUTO) 72.3 %; PLT - PLATELET COUNT 402 10^3/uL (130-450); RED BLOOD COUNT 3.92 10^6/uL (4.70-6.10); RED CELL DISTRIBUTION WIDTH 14.2 % (12.0-15.0); WHITE BLOOD COUNT 10.4 x10^3/uL (4.8-10.8)
[2018-12-14] MEDS: PANTOPRAZOLE 40 MG TABLET PO SCH (06:03)
[2018-12-14] MEDS: PIPERACILLIN/TAZOBACTAM 3.375 GM in SODIUM CHLORIDE 0.9% MINIBAG 100 ML IV SCH ×4 (06:03→14:00)
[2018-12-14] MEDS: SODIUM CHLORIDE FLUSH 0.9% 10 ML SYRINGE IVP PRN (06:04)
[2018-12-14] MEDS: POLYETHYLENE GLYCOL 3350 17 GM PACKET PO SCH (08:02)
[2018-12-14] MEDS: DOCUSATE SODIUM 250 MG CAPSULE PO SCH (08:03)
[2018-12-14] MEDS: ENOXAPARIN 40 MG/0.4 ML SYRINGE SUBQ SCH (08:06)
[2018-12-14] MEDS ORDERED: SENNA 8.6 MG TABLET PO SCH (09:00)
[2018-12-14 15:51] VITALS: BP 139/72
--- NOTE | 2018-12-14 15:52 | DISCHARGE SUMMARY ---
"Discharge Summary Discharge Date: 12/14/18 Discharging Provider: Dr. Luis F Jennings Primary Care Provider: Dr. Jin Parsons Code Status: Attempt Resuscitation Condition at Discharge: Stable Discharge Disposition: 01 Home, Self Care - DIAGNOSES Admission Diagnoses: Intra-abdominal abscess with foreign body Discharge Diagnoses with Status of Each Condition: Resolved - HPI History of Present Illness: Patient is a 53 year old male who had the abrupt onset of RUQ pain that prompted his arrival to [facility] ED. The initial workup was targeting possible cholelithiasis when the studies showed a RUQ abscess with a foreign body present within it. I was consulted and had to wait for radiology to try and localize a minimally invasive procedure. When this was completed, the patient was taken to the OR where the localization plus the patient's localization did not result in adequate localization and an exploratory laparotomy had to be performed. The abscess cavity was resected, the foreign body removed (wire) and an omental patch placed on the colon. The patient did well postoperatively and the WBC has decreased to normal and the patient has had a bowel movement. - CONSULTS | PROCEDURES Consultations: General surgery (Dr. Jennings) Procedures: Exploratory laparotomy, resection of abscess cavity, removal foreign body, omental patch and placement of drain - HOSPITAL COURSE Hospital Course: Uncomplicated - ALLERGIES Allergies/Adverse Reactions: Allergies Allergy/AdvReac Type Severity Reaction Status Date / Time hydromorphone [From Dilaudid] Allergy Nausea Verified 12/10/18 11:29 ondansetron [From Zofran] AdvReac Nausea Verified 12/10/18 11:29 - MEDICATIONS Home Medications: Ambulatory Orders Medication Instructions Recorded Confirmed Aspirin 81 mg PO DAILY 12/10/18 12/10/18 Atorvastatin [Lipitor] 10 mg PO DAILY 12/10/18 12/10/18 Lisinopril 10 mg PO DAILY 12/10/18 12/10/18 Cyclobenzaprine [Flexeril] 10 mg PO TID PRN 12/11/18 12/11/18 Home Medications Other | Comments: Levaquin 500 mg daily Flagyl 250 mg QID [place] 5/325 mg [id number] PRN Colace 250 mg daily - PHYSICAL EXAM AT DISCHARGE General Appearance: positive: No acute distress Eyes Bilateral: positive: No lid inflammation, Conjunctivae nml, No scleral icterus ENT: positive: No signs of dehydration Neck: positive: Trachea midline Respiratory: positive: Chest non-tender, No respiratory distress, Breath sounds nml Cardiovascular: positive: Regular rate & rhythm Abdomen: positive: Nml bowel sounds, Tenderness (Slight incisional), Other (Drain removed patient tolerated well.) Skin: positive: Color nml Extremities: positive: Non-tender, Full ROM, Nml appearance Neurologic/Psychiatric: positive: Oriented x3, Motor nml (Hyperreflexive.), Sensation nml, Mood/affect nml - LABS Result Diagrams: 12/14/18 04:35 12/12/18 04:40 - FOLLOW UP Follow Up: Dr. Luis F Jennings for wound check and stitch/staple removal in 5-7 days. - TIME SPENT Time Spent in Discharge (Minutes): 45"
--- NOTE | 2018-12-14 16:08 | Discharge Plan ---
Discharge Plan Disposition: Home, Self Care Condition: Stable Prescriptions: HYDROcod/ACETAM 5/325 [[place] 5/325] 1 tab PO Q4HR PRN #20 tablet PRN Reason: Pain Docusate Sodium 250Mg Capsule [Colace 250Mg Capsule] 250 mg PO DAILY #10 capsule Levofloxacin [Levaquin] 500 mg PO QPM #5 tablet metroNIDAZOLE [Flagyl] 250 mg PO Q6H #20 tablet Diet: Regular Activity Restrictions: No lifting >15 pounds for 6 weeks. No work until cleared by me in office. Shower Restrictions: No Driving Restrictions: Yes (Not while taking pain medications.) Weight Bearing: Full Weight Instruction Topics: Simethicone chewable tablets No Smoking: If you smoke, Please STOP! Call for help. Follow-up with: Jin Parsons MD [Primary Care Provider] - Luis F Jennings MD [Provider Admit Priv/Credential] -
== END 2018-12-14 16:30 | disposition home or self-care (01) | DRG 329 ==
LOC: ED 11:21 → MS2 17:00 → OBSVTOIN 12-11 11:39
PROVIDERS: ADMIT Surgery; ATTEND Surgery
PROC: 0W9F00Z Drainage of Abdominal Wall with Drainage Device, Open Approach (ICD-10-PCS; 2018-12-11)
PROC: 0WCG0ZZ Extirpation of Matter from Peritoneal Cavity, Open Approach (ICD-10-PCS; principal; 2018-12-11 08:00)
PROC: 0DUE07Z Supplement Large Intestine with Autologous Tissue Substitute, Open Approach (ICD-10-PCS; 2018-12-11 08:00)
DX: T18.4XXA Foreign body in colon, initial encounter (principal); K63.1 Perforation of intestine (nontraumatic); K65.1 Peritoneal abscess; G11.1 Early-onset cerebellar ataxia; K57.30 Diverticulosis of large intestine without perforation or abscess without bleeding; I10 Essential (primary) hypertension; E78.00 Pure hypercholesterolemia, unspecified; Z79.82 Long term (current) use of aspirin; Z79.899 Other long term (current) drug therapy; Z90.49 Acquired absence of other specified parts of digestive tract
CPT/HCPCS: 36415; 74177; 76705; 80053; 81003; 83690; 85025; 96361; 96365; 96366; 96367; 96375; 96376; 99284; 99285; A9270; G0378; J0131; J1650; J2270; J7040; J7120; Q9967; 81001; 87086

== ENCOUNTER 2019-04-11 07:07 | Outpatient (CLI) | payer OTHER ==
[2019-04-11 12:34] LABS: CHOLESTEROL 158 mg/dL; GLUCOSE 103 mg/dL (70-100); HDL CHOLESTEROL 40 mg/dL; LDL CHOLESTEROL,CALCULATED 101 mg/dL; LDL/HDL RATIO 2.5 (<3.6); VLDL CHOLESTEROL 17 mg/dL
== END 2019-04-11 23:59 | disposition home or self-care (01) ==
LOC: LAB.N 07:07
PROVIDERS: ATTEND Family Medicine
DX: E78.5 Hyperlipidemia, unspecified (principal); R73.9 Hyperglycemia, unspecified
CPT/HCPCS: 36415; 80061; 82947; 83721

== ENCOUNTER 2020-03-31 07:38 | Outpatient (CLI) | payer BC, OTHER ==
[2020-03-31 12:05] LABS: BASOPHILS # (AUTO) 0.1 10^3/uL (0.0-0.1); BASOPHILS % (AUTO) 0.8 %; EOSINOPHILS # (AUTO) 0.5 10^3/uL (0.0-0.7); EOSINOPHILS % (AUTO) 8.7 %; HGB - HEMOGLOBIN 15.2 g/dL (14.0-18.0); LYMPHOCYTES # (AUTO) 1.5 10^3/uL (1.5-3.5); LYMPHOCYTES % (AUTO) 24.4 %; MEAN CORPUSCULAR HEMOGLOBIN 31.7 pg (27.0-31.0); MEAN CORPUSCULAR HGB CONC 32.5 g/dL (32.0-36.0); MEAN CORPUSCULAR VOLUME 97.7 fL (80.0-94.0); MEAN PLATELET VOLUME 9.4 fL (7.4-11.4); MONOCYTES # (AUTO) 0.6 10^3/uL (0.0-1.0); MONOCYTES % (AUTO) 10.2 %; NEUTROPHILS # (AUTO) 3.4 10^3/uL (1.5-6.6); NEUTROPHILS % (AUTO) 55.3 %; PLT - PLATELET COUNT 292 10^3/uL (130-450); RED BLOOD COUNT 4.79 10^6/uL (4.70-6.10); RED CELL DISTRIBUTION WIDTH 14.1 % (12.0-15.0); WHITE BLOOD COUNT 6.2 x10^3/uL (4.8-10.8)
[2020-03-31 12:20] LABS: ALBUMIN 4.5 g/dL (3.2-5.5); ALBUMIN/GLOBULIN RATIO 1.7 (1.0-2.2); ALKALINE PHOSPHATASE 53 IU/L (42-121); ALT ALANINE AMINOTRANSFERASE 22 IU/L (10-60); AST ASPARTATE AMINOTRANSFERASE 17 IU/L (10-42); BILIRUBIN,TOTAL 0.7 mg/dL (0.2-1.0); BUN - BLOOD UREA NITROGEN 23 mg/dL (6-20); CALCIUM 9.3 mg/dL (8.5-10.3); CARBON DIOXIDE - CO2 27 mmol/L (21-32); CHLORIDE 104 mmol/L (101-111); CHOL/HDL RATIO 3.7 (<5.0); CHOLESTEROL 157 mg/dL; CREATININE 0.8 mg/dL (0.6-1.2); GLUCOSE 116 mg/dL (70-100); HDL CHOLESTEROL 42 mg/dL; LDL CHOLESTEROL,CALCULATED 100 mg/dL; LDL/HDL RATIO 2.4 (<3.6); SODIUM 141 mmol/L (135-145); TOTAL PROTEIN 7.2 g/dL (6.7-8.2); VLDL CHOLESTEROL 15 mg/dL
[2020-03-31 12:54] LABS: HEMOGLOBIN A1c% 5.8 % (4.27-6.07)
== END 2020-03-31 23:59 | disposition home or self-care (01) ==
LOC: LAB.WCP 07:38
PROVIDERS: ATTEND Family Medicine
DX: I10 Essential (primary) hypertension (principal); E78.5 Hyperlipidemia, unspecified; R73.9 Hyperglycemia, unspecified
CPT/HCPCS: 36415; 80053; 80061; 83036; 83721; 85025

== ENCOUNTER 2021-03-01 16:53 | Emergency (ER) | payer BC ==
[2021-03-01] MEDS ORDERED: BUFFERED LIDOCAINE 10 ML SYRINGE SUBQ STA (17:32)
[2021-03-01] MEDS ORDERED: TETANUS/DIPHTHERIA/PERTUSSIS 0.5 ML SYRINGE IM ONE (18:06)
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
[2021-03-01 18:27] VITALS: BP 133/85
== END 2021-03-01 18:27 | disposition home or self-care (01) ==
LOC: ED 16:53
DX: S61.412A Laceration without foreign body of left hand, initial encounter (principal); W26.0XXA Contact with knife, initial encounter; Y92.009 Unspecified place in unspecified non-institutional (private) residence as the place of occurrence of the external cause; Z79.82 Long term (current) use of aspirin; I10 Essential (primary) hypertension; E78.00 Pure hypercholesterolemia, unspecified; Z79.899 Other long term (current) drug therapy
CPT/HCPCS: 12001; 90471; 99282; 99283

== ENCOUNTER 2021-03-10 07:13 | Outpatient (CLI) | payer BC ==
[2021-03-10 11:53] LABS: BASOPHILS # (AUTO) 0.1 10^3/uL (0.0-0.1); BASOPHILS % (AUTO) 0.9 %; EOSINOPHILS # (AUTO) 0.4 10^3/uL (0.0-0.7); EOSINOPHILS % (AUTO) 6.1 %; HCT - HEMATOCRIT 46.1 % (42.0-52.0); HGB - HEMOGLOBIN 15.3 g/dL (14.0-18.0); LYMPHOCYTES # (AUTO) 1.6 10^3/uL (1.5-3.5); LYMPHOCYTES % (AUTO) 24.8 %; MEAN CORPUSCULAR HEMOGLOBIN 31.8 pg (27.0-31.0); MEAN CORPUSCULAR HGB CONC 33.2 g/dL (32.0-36.0); MEAN CORPUSCULAR VOLUME 95.8 fL (80.0-94.0); MEAN PLATELET VOLUME 9.1 fL (7.4-11.4); MONOCYTES # (AUTO) 0.6 10^3/uL (0.0-1.0); MONOCYTES % (AUTO) 9.7 %; NEUTROPHILS # (AUTO) 3.8 10^3/uL (1.5-6.6); PLT - PLATELET COUNT 348 10^3/uL (130-450); RED BLOOD COUNT 4.81 10^6/uL (4.70-6.10); RED CELL DISTRIBUTION WIDTH 14.1 % (12.0-15.0); WHITE BLOOD COUNT 6.6 x10^3/uL (4.8-10.8)
[2021-03-10 12:10] LABS: BILIRUBIN,URINE NEGATIVE (NEGATIVE); GLUCOSE, URINE (UA) NEGATIVE (NEGATIVE); KETONES,URINE (UA) NEGATIVE (NEGATIVE); LEUKOCYTE ESTERASE, URINE NEGATIVE (NEGATIVE); NITRITE,URINE NEGATIVE (NEGATIVE); OCCULT BLOOD,URINE NEGATIVE (NEGATIVE); PH,URINE 5.5 PH (5.0-7.5); PROTEIN,URINE NEGATIVE (NEGATIVE); UROBILINOGEN,URINE 0.2 (NORMAL) E.U./dL (NORMAL)
[2021-03-10 12:16] LABS: AMORPHOUS SEDIMENT,UR Marked /LPF; BACTERIA,URINE Rare /HPF (None Seen); CLARITY,URINE CLOUDY (CLEAR); RBC,URINE 0-5 /HPF (0-5); SQUAMOUS EPITHELIAL CELL,UR RARE Squamous (<= Few); WBC,URINE 0-3 /HPF (0-3)
[2021-03-10 12:35] LABS: ALBUMIN 4.7 g/dL (3.2-5.5); ALBUMIN/GLOBULIN RATIO 1.4 (1.0-2.2); ALKALINE PHOSPHATASE 69 IU/L (42-121); ALT ALANINE AMINOTRANSFERASE 31 IU/L (10-60); AST ASPARTATE AMINOTRANSFERASE 24 IU/L (10-42); BILIRUBIN,TOTAL 0.7 mg/dL (0.2-1.0); BUN - BLOOD UREA NITROGEN 18 mg/dL (6-20); CALCIUM 9.5 mg/dL (8.5-10.3); CARBON DIOXIDE - CO2 25 mmol/L (21-32); CHLORIDE 105 mmol/L (101-111); CHOL/HDL RATIO 4.6 (<5.0); CHOLESTEROL 227 mg/dL; GFR - MDRD 78 (>89); GLUCOSE 123 mg/dL (70-100); HDL CHOLESTEROL 49 mg/dL; LDL CHOLESTEROL,CALCULATED 153 mg/dL; LDL/HDL RATIO 3.1 (<3.6); POTASSIUM 4.5 mmol/L (3.5-5.0); SODIUM 140 mmol/L (135-145); TOTAL PROTEIN 8.1 g/dL (6.7-8.2); TRIGLYCERIDES 127 mg/dL; VLDL CHOLESTEROL 25 mg/dL
[2021-03-10 12:38] LABS: CRP - C-REACTIVE PROTEIN < 1.0 mg/dL (0-1.0)
[2021-03-10 12:41] LABS: THYROID STIMULATING HORMONE 2.52 uIU/mL (0.34-5.60)
[2021-03-10 13:44] LABS: ESTIMATED AVERAGE GLUCOSE 120 mg/dL (70-100); HEMOGLOBIN A1c% 5.8 % (4.27-6.07)
== END 2021-03-10 23:59 | disposition home or self-care (01) ==
LOC: LAB.WCP 07:13
PROVIDERS: ATTEND Nurse Practitioner
DX: E78.5 Hyperlipidemia, unspecified (principal); R53.83 Other fatigue; R73.9 Hyperglycemia, unspecified; Z12.5 Encounter for screening for malignant neoplasm of prostate
CPT/HCPCS: 36415; 80053; 80061; 81001; 82607; 83036; 83721; 84153; 84443; 85025; 85651; 86140; 87086

== ENCOUNTER 2021-03-12 08:38 | Outpatient (CLI) | payer BC ==
--- NOTE | 2021-03-12 10:36 | XRAY Report ---
PROCEDURE: Hip w/Pelvis 2-3V RT INDICATIONS: RIGHT HIP JOINT PAIN / BURSITIS TECHNIQUE: AP pelvis with lateral view(s) of the bilateral hip(s). COMPARISON: None. FINDINGS: Bones: No fractures or dislocations. Pelvic ring appears intact. No suspicious bony lesions. Scat tered subchondral sclerosis and spurring. Lower lumbar spondylosis and facet disease. Prominent dege nerative cyst involving the left acetabular roof. Mild bilateral hip joint space narrowing Soft tissues: The visualized bowel gas pattern is normal. No suspicious soft tissue calcifications. IMPRESSION: Mild bilateral hip joint degeneration. If the patient's pain or other symptoms persist, consider further evaluation with MRI. Reviewed by: Harsha Gongora MD on 03/12/2021 10:34 AM PDT Approved by: Harsha Gongora MD on 03/12/2021 10:34 AM PDT Station ID: [id number]
== END 2021-03-12 08:39 | disposition home or self-care (01) ==
LOC: DI.N 08:38
PROVIDERS: ATTEND Nurse Practitioner
DX: M70.61 Trochanteric bursitis, right hip (principal); M25.551 Pain in right hip; M16.0 Bilateral primary osteoarthritis of hip

== ENCOUNTER 2021-05-26 07:00 | Outpatient (CLI) | payer BC | END 2021-05-26 23:59 | disposition home or self-care (01) | LOC: LAB.N 07:00 | PROVIDERS: ATTEND Family Medicine | DX: Z20.822 Contact with and (suspected) exposure to COVID-19 (principal) ==

== ENCOUNTER 2022-08-13 08:07 | Outpatient (CLI) | payer BC ==
[2022-08-13 11:55] LABS: BASOPHILS # (AUTO) 0.1 10^3/uL (0.0-0.1); EOSINOPHILS # (AUTO) 0.5 10^3/uL (0.0-0.7); EOSINOPHILS % (AUTO) 8.4 %; HCT - HEMATOCRIT 45.8 % (42.0-52.0); HGB - HEMOGLOBIN 14.9 g/dL (14.0-18.0); LYMPHOCYTES # (AUTO) 1.7 10^3/uL (1.5-3.5); MEAN CORPUSCULAR HEMOGLOBIN 31.1 pg (27.0-31.0); MEAN CORPUSCULAR HGB CONC 32.5 g/dL (32.0-36.0); MEAN CORPUSCULAR VOLUME 95.6 fL (80.0-94.0); MEAN PLATELET VOLUME 9.1 fL (7.4-11.4); MONOCYTES # (AUTO) 0.6 10^3/uL (0.0-1.0); MONOCYTES % (AUTO) 9.4 %; NEUTROPHILS # (AUTO) 3.3 10^3/uL (1.5-6.6); NEUTROPHILS % (AUTO) 53.7 %; PLT - PLATELET COUNT 321 10^3/uL (130-450); RED BLOOD COUNT 4.79 10^6/uL (4.70-6.10); RED CELL DISTRIBUTION WIDTH 13.4 % (12.0-15.0); WHITE BLOOD COUNT 6.2 x10^3/uL (4.8-10.8)
[2022-08-13 12:13] LABS: ALBUMIN 4.4 g/dL (3.2-5.5); ALBUMIN/GLOBULIN RATIO 1.3 (1.0-2.2); ALKALINE PHOSPHATASE 68 IU/L (42-121); ALT ALANINE AMINOTRANSFERASE 28 IU/L (10-60); AST ASPARTATE AMINOTRANSFERASE 21 IU/L (10-42); BILIRUBIN,TOTAL 0.9 mg/dL (0.2-1.0); BUN - BLOOD UREA NITROGEN 17 mg/dL (6-20); CALCIUM 9.3 mg/dL (8.5-10.3); CARBON DIOXIDE - CO2 27 mmol/L (21-32); CHLORIDE 104 mmol/L (101-111); CHOL/HDL RATIO 4.1 (<5.0); CHOLESTEROL 173 mg/dL; CREATININE 0.9 mg/dL (0.6-1.2); GFR - MDRD 88 (>89); GLUCOSE 116 mg/dL (70-100); HDL CHOLESTEROL 42 mg/dL; LDL CHOLESTEROL,CALCULATED 110 mg/dL; LDL/HDL RATIO 2.6 (<3.6); POTASSIUM 4.7 mmol/L (3.5-5.0); SODIUM 139 mmol/L (135-145); TOTAL PROTEIN 7.7 g/dL (6.7-8.2); TRIGLYCERIDES 106 mg/dL; VLDL CHOLESTEROL 21 mg/dL
[2022-08-13 12:22] LABS: THYROID STIMULATING HORMONE 2.06 uIU/mL (0.34-5.60)
[2022-08-13 12:33] LABS: FOLATE 10.73 ng/mL (5.90 - >24.8)
== END 2022-08-13 08:08 | disposition home or self-care (01) ==
LOC: LAB.N 08:07
PROVIDERS: ATTEND Nurse Practitioner
DX: I10 Essential (primary) hypertension (principal); E78.5 Hyperlipidemia, unspecified; G11.9 Hereditary ataxia, unspecified; Z12.5 Encounter for screening for malignant neoplasm of prostate
CPT/HCPCS: 36415; 80053; 80061; 82607; 82746; 83721; 84153; 84443; 85025

== ENCOUNTER 2023-09-21 10:58 | Outpatient (CLI) | payer OTHER ==
--- NOTE | 2023-09-21 11:38 | XRAY Report ---
PROCEDURE: Elbow 3+V LT INDICATIONS: OLECRANON BURSITIS, LEFT TECHNIQUE: 3 views of the elbow were acquired. COMPARISON: None. FINDINGS: Bones: No fractures or dislocations. Tiny corticated ossific densities adjacent to the medial and la teral epicondyles may represent sequela of remote trauma versus accessory ossicles. No suspicious bon y lesions. Soft tissues: No effusion. No suspicious soft tissue calcifications or masses. Soft tissue swellin g overlying the olecranon. IMPRESSION: 1.No acute bony abnormality. 2.Soft tissue swelling overlying the olecranon. No underlying osseous abnormality. Reviewed by: Carlota Daigle MD on 09/21/2023 11:37 AM PDT Approved by: Carlota Daigle MD on 09/21/2023 11:37 AM PDT Station ID: [id number]
== END 2023-09-21 10:59 | disposition home or self-care (01) ==
LOC: DI.N 10:58
PROVIDERS: ATTEND Nurse Practitioner
DX: M70.22 Olecranon bursitis, left elbow (principal)

== ENCOUNTER 2023-09-21 11:01 | Outpatient (CLI) | payer OTHER ==
[2023-09-21 17:36] LABS: BASOPHILS # (AUTO) 0.1 10^3/uL (0.0-0.1); EOSINOPHILS # (AUTO) 0.9 10^3/uL (0.0-0.7); EOSINOPHILS % (AUTO) 10.6 %; LYMPHOCYTES % (AUTO) 25.2 %; MEAN CORPUSCULAR HEMOGLOBIN 31.2 pg (27.0-31.0); MEAN CORPUSCULAR HGB CONC 32.6 g/dL (32.0-36.0); MEAN CORPUSCULAR VOLUME 95.6 fL (80.0-94.0); MEAN PLATELET VOLUME 9.2 fL (7.4-11.4); MONOCYTES # (AUTO) 0.6 10^3/uL (0.0-1.0); MONOCYTES % (AUTO) 7.9 %; NEUTROPHILS # (AUTO) 4.4 10^3/uL (1.5-6.6); NEUTROPHILS % (AUTO) 54.9 %; PLT - PLATELET COUNT 350 10^3/uL (130-450); RED BLOOD COUNT 4.81 10^6/uL (4.70-6.10); RED CELL DISTRIBUTION WIDTH 13.9 % (12.0-15.0)
[2023-09-21 18:30] LABS: ALBUMIN/GLOBULIN RATIO 1.7 (1.0-2.2); ALKALINE PHOSPHATASE 77 IU/L (42-121); ALT ALANINE AMINOTRANSFERASE 22 IU/L (10-60); AST ASPARTATE AMINOTRANSFERASE 17 IU/L (10-42); BILIRUBIN,TOTAL 0.5 mg/dL (0.2-1.0); BUN - BLOOD UREA NITROGEN 21 mg/dL (6-20); CALCIUM 10.3 mg/dL (8.5-10.3); CARBON DIOXIDE - CO2 27 mmol/L (21-32); CHLORIDE 102 mmol/L (101-111); CHOL/HDL RATIO 4.5 (<5.0); CHOLESTEROL 193 mg/dL; GFR - MDRD 77 (>89); GLUCOSE 89 mg/dL (74-104); HDL CHOLESTEROL 43 mg/dL; LDL CHOLESTEROL,CALCULATED 91 mg/dL; LDL/HDL RATIO 2.1 (<3.6); POTASSIUM 4.6 mmol/L (3.5-4.5); SODIUM 136 mmol/L (135-145); TOTAL PROTEIN 7.9 g/dL (6.4-8.9); TRIGLYCERIDES 293 mg/dL (48-352); VLDL CHOLESTEROL 59 mg/dL
[2023-09-21 18:38] LABS: THYROID STIMULATING HORMONE 2.14 uIU/mL (0.34-5.60)
[2023-09-21 23:12] LABS: ESTIMATED AVERAGE GLUCOSE 123 mg/dL (70-100); HEMOGLOBIN A1c% 5.9 % (4.27-6.07)
== END 2023-09-21 11:02 | disposition home or self-care (01) ==
LOC: LAB.N 11:01
PROVIDERS: ATTEND Nurse Practitioner
DX: E78.5 Hyperlipidemia, unspecified (principal); R53.83 Other fatigue; R73.03 Prediabetes; Z12.5 Encounter for screening for malignant neoplasm of prostate; G11.9 Hereditary ataxia, unspecified
CPT/HCPCS: 36415; 80053; 80061; 83036; 83721; 84153; 84443; 85025

== ENCOUNTER 2024-04-03 07:04 | Outpatient (CLI) | payer OTHER ==
[2024-04-03 07:30] LABS: ALBUMIN 4.8 g/dL (3.2-5.5); ALBUMIN/GLOBULIN RATIO 1.9 (1.0-2.2); ALKALINE PHOSPHATASE 74 IU/L (42-121); ALT ALANINE AMINOTRANSFERASE 21 IU/L (10-60); AST ASPARTATE AMINOTRANSFERASE 15 IU/L (10-42); BILIRUBIN,TOTAL 0.5 mg/dL (0.2-1.0); BUN - BLOOD UREA NITROGEN 24 mg/dL (6-20); CALCIUM 9.8 mg/dL (8.5-10.3); CARBON DIOXIDE - CO2 28 mmol/L (21-32); CHLORIDE 103 mmol/L (101-111); CHOL/HDL RATIO 4.3 (<5.0); CHOLESTEROL 186 mg/dL; GFR - MDRD 77 (>89); GLUCOSE 116 mg/dL (74-104); HDL CHOLESTEROL 43 mg/dL; LDL CHOLESTEROL,CALCULATED 115 mg/dL; LDL/HDL RATIO 2.7 (<3.6); POTASSIUM 4.6 mmol/L (3.5-4.5); SODIUM 137 mmol/L (135-145); TOTAL PROTEIN 7.3 g/dL (6.4-8.9); TRIGLYCERIDES 139 mg/dL; VLDL CHOLESTEROL 28 mg/dL
[2024-04-03 07:40] LABS: BASOPHILS % (AUTO) 0.6 %; EOSINOPHILS # (AUTO) 0.5 10^3/uL (0.0-0.7); EOSINOPHILS % (AUTO) 7.7 %; HCT - HEMATOCRIT 45.8 % (42.0-52.0); HGB - HEMOGLOBIN 14.9 g/dL (14.0-18.0); LYMPHOCYTES # (AUTO) 1.6 10^3/uL (1.5-3.5); LYMPHOCYTES % (AUTO) 24.7 %; MEAN CORPUSCULAR HEMOGLOBIN 31.4 pg (27.0-31.0); MEAN CORPUSCULAR HGB CONC 32.5 g/dL (32.0-36.0); MEAN CORPUSCULAR VOLUME 96.4 fL (80.0-94.0); MEAN PLATELET VOLUME 8.7 fL (7.4-11.4); MONOCYTES # (AUTO) 0.6 10^3/uL (0.0-1.0); MONOCYTES % (AUTO) 8.6 %; NEUTROPHILS # (AUTO) 3.9 10^3/uL (1.5-6.6); NEUTROPHILS % (AUTO) 57.9 %; PLT - PLATELET COUNT 319 10^3/uL (130-450); RED BLOOD COUNT 4.75 10^6/uL (4.70-6.10); RED CELL DISTRIBUTION WIDTH 13.5 % (12.0-15.0); WHITE BLOOD COUNT 6.6 x10^3/uL (4.8-10.8)
[2024-04-03 07:44] LABS: THYROID STIMULATING HORMONE 3.97 uIU/mL (0.34-5.60)
== END 2024-04-03 07:05 | disposition home or self-care (01) ==
LOC: LAB 07:04
PROVIDERS: ATTEND Nurse Practitioner
DX: R19.4 Change in bowel habit (principal); R53.83 Other fatigue; E78.5 Hyperlipidemia, unspecified
CPT/HCPCS: 36415; 80053; 80061; 83721; 84443; 85025